=== PATIENT | male | born 1990 | race African-American/Black ===

== ENCOUNTER 2018-10-06 03:08 | Emergency (ER) | payer SELFPAY ==
[~2018-10-06] VITALS: Ht 175.3 cm; Wt 106.0 kg
[2018-10-06 05:08] LABS: CLARITY URINE CLEAR (CLEAR); COLOR URINE YELLOW (YELLOW); KETONES URINE NEGATIVE (NEGATIVE); LEUKOCYTE ESTERASE URINE NEGATIVE (NEGATIVE); NITRITE URINE NEGATIVE (NEGATIVE); OCCULT BLOOD URINE 2+ (NEGATIVE); PROTEIN URINE NEGATIVE (NEGATIVE); SPECIFIC GRAVITY URINE 1.024 (1.005-1.030); UROBILINOGEN URINE 0.2 E.U./dL (0.2-1.0)
[2018-10-06 08:57] VITALS: BP 154/68
== END 2018-10-06 09:02 | disposition home or self-care (01) ==
LOC: ER 04:15
DX: N20.0 Calculus of kidney (principal); D18.09 Hemangioma of other sites; R03.0 Elevated blood-pressure reading, without diagnosis of hypertension
CPT/HCPCS: 74176; 76705; 81003; 99284; Z7610